=== PATIENT | male | born 1975 | race African-American/Black ===

== ENCOUNTER 2019-09-21 16:28 | Emergency (ER) | payer SELFPAY ==
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
[2019-09-22] MEDS ORDERED: IBUPROFEN 600 MG TAB PO ONE (03:27)
[2019-09-22] MEDS ORDERED: ONDANSETRON 4 MG ODT TAB PO ONE (03:27)
[2019-09-22] MEDS ORDERED: HYDROcodone/ACETAMINOPHEN 7.5-325MG TAB PO ONE (03:28)
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
[2019-09-22 04:51] VITALS: BP 106/66
== END 2019-09-22 04:51 | disposition home or self-care (01) ==
LOC: ED 16:28
DX: S20.211A Contusion of right front wall of thorax, initial encounter (principal); F17.200 Nicotine dependence, unspecified, uncomplicated; V47.5XXA Car driver injured in collision with fixed or stationary object in traffic accident, initial encounter; Y93.89 Activity, other specified; Y92.410 Unspecified street and highway as the place of occurrence of the external cause; Y99.8 Other external cause status
CPT/HCPCS: 71111; Q0162